=== PATIENT | male | born 2000 | race Caucasian/White ===

== ENCOUNTER 2023-01-05 11:13 | Emergency (ER) | payer SELFPAY ==
[~2023-01-05] VITALS: Ht 170.2 cm; Wt 90.9 kg
[2023-01-05 11:17] VITALS: TEMP 97.5
[2023-01-05] MEDS ORDERED: PERCOCET 325 MG1 TA2 PO (12:27)
[2023-01-05] MEDS ORDERED: CEPHALEXIN500 M1 PO (12:27)
[2023-01-05 12:48] VITALS: BP 164/108; PULSE 108
== END 2023-01-05 12:48 | disposition home or self-care (01) ==
LOC: COL.ER 11:13
DX: S62.633A Displaced fracture of distal phalanx of left middle finger, initial encounter for closed fracture (principal); Z28.310 Unvaccinated for COVID-19; W27.0XXA Contact with workbench tool, initial encounter